=== PATIENT | female | born 1990 | race Caucasian/White ===

== ENCOUNTER 2017-11-20 18:14 | Emergency (ER) | payer OTHER ==
[~2017-11-20] VITALS: Ht 170.2 cm; Wt 63.5 kg
[2017-11-20 18:49] VITALS: Ht 170.2 cm; Wt 63.5 kg
[2017-11-20 21:30] VITALS: BP 102/58
== END 2017-11-20 21:30 | disposition home or self-care (01) ==
LOC: ED 18:14
DX: S39.012A Strain of muscle, fascia and tendon of lower back, initial encounter (principal); M54.17 Radiculopathy, lumbosacral region; X50.1XXA Overexertion from prolonged static or awkward postures, initial encounter; Y93.89 Activity, other specified; Y92.89 Other specified places as the place of occurrence of the external cause; Y99.8 Other external cause status
CPT/HCPCS: J1885